=== PATIENT | female | born 1960 | race Caucasian/White ===

== ENCOUNTER 2016-12-04 12:15 | Outpatient (CLI) | payer MEDICAID | END 2016-12-04 12:16 | disposition home or self-care (01) | DX: M79.671 Pain in right foot (principal) ==

== ENCOUNTER 2017-05-17 10:54 | Outpatient (CLI) | payer MEDICAID ==
[2017-05-17 11:15] LABS: BASOPHILS % (AUTO) 0.3 %; EOSINOPHILS # (AUTO) 0.1 10^3/uL (0.0-0.7); HCT - HEMATOCRIT 36.7 % (37.0-47.0); HGB - HEMOGLOBIN 12.2 g/dL (12.0-16.0); LYMPHOCYTES # (AUTO) 1.6 10^3/uL (1.5-3.5); MEAN CORPUSCULAR HEMOGLOBIN 29.4 pg (27.0-31.0); MEAN CORPUSCULAR HGB CONC 33.3 g/dL (32.0-36.0); MEAN CORPUSCULAR VOLUME 88.4 fL (81.0-99.0); MEAN PLATELET VOLUME 8.2 fL (7.9-10.8); MONOCYTES # (AUTO) 0.2 10^3/uL (0.0-1.0); MONOCYTES % (AUTO) 3.4 %; NEUTROPHILS # (AUTO) 3.1 10^3/uL (1.5-6.6); NEUTROPHILS % (AUTO) 63.3 %; RED BLOOD COUNT 4.16 10^6/uL (4.20-5.40); RED CELL DISTRIBUTION WIDTH 12.9 % (12.0-15.0); UNCORRECTED WHITE BLOOD COUNT 4.9 x10^3/uL; WHITE BLOOD COUNT 4.9 x10^3/uL (4.8-10.8)
[2017-05-17 11:29] LABS: HEMOGLOBIN A1C 0.51 g/dL
[2017-05-17 11:30] LABS: ALBUMIN/GLOBULIN RATIO 0.9 (1.0-2.2); BILIRUBIN,TOTAL 0.3 mg/dL (0.2-1.0); BUN - BLOOD UREA NITROGEN 10 mg/dL (6-20); CALCIUM 8.5 mg/dL (8.5-10.3); CARBON DIOXIDE - CO2 29 mmol/L (21-32); CHLORIDE 102 mmol/L (101-111); CHOL/HDL RATIO 3.9 (<4.4); CHOLESTEROL 178 mg/dL; CREATININE 0.7 mg/dL (0.4-1.0); GFR - MDRD 86 (>89); GLUCOSE 105 mg/dL (70-100); HDL CHOLESTEROL 46 mg/dL; POTASSIUM 3.7 mmol/L (3.5-5.0); SODIUM 136 mmol/L (135-145); TOTAL PROTEIN 7.5 g/dL (6.7-8.2); TRIGLYCERIDES 199 mg/dL; VLDL CHOLESTEROL 40 mg/dL
== END 2017-05-17 10:55 | disposition home or self-care (01) ==
LOC: LAB 10:54
PROVIDERS: ATTEND Family Medicine
DX: R73.01 Impaired fasting glucose (principal)
CPT/HCPCS: 36415; 80053; 80061; 83036; 84443; 85025

== ENCOUNTER 2017-06-16 17:27 | Emergency (ER) | payer MEDICAID ==
[2017-06-16 17:35] VITALS: BP 131/76
[2017-06-16] MEDS ORDERED: LIDOCAINE VISCOUS 2% 15 ML UDC MM STA (17:57)
[2017-06-16] MEDS ORDERED: MAG HYDROX/AL HYDROX/SIMETH 30 ML UDC PO STA (17:57)
--- NOTE | 2017-06-16 17:59 | ED Physician Documentation ---
PD HPI HEENT - Stated complaint Stated Complaint: SORE THROAT/TEAGUE - Chief complaint Chief Complaint: Heent - History obtained from History obtained from: Patient - History of Present Illness Timing - onset: Other (6 days of sores on her tongue, especially the right side with a painful swelling under the right mandible and a sore throat with some fatigue and myalgias but no measured fevers. There is no associated cough, rhinorrhea.) Review of Systems Constitutional: reports: Myalgias, Fatigue. denies: Fever, Chills Ears: reports: Ear pain (Pain radiates to the right ear) Nose: denies: Rhinorrhea / runny nose, Congestion Throat: reports: Sore throat PD PAST MEDICAL HISTORY - Past Medical History Cardiovascular: High cholesterol, Coronary artery disease Respiratory: None Neuro: None Endocrine/Autoimmune: None Psych: None Musculoskeletal: None - Past Surgical History General: Cholecystectomy, Appendectomy - Present Medications Home Medications: Ambulatory Orders Medication Instructions Recorded Confirmed Aspirin [Aspirin EC] 81 mg PO DAILY 06/16/17 06/16/17 Atorvastatin [Lipitor] 10 mg PO DAILY 06/16/17 06/16/17 Clopidogrel [Plavix] 75 mg PO DAILY 06/16/17 06/16/17 Estradiol 0.5 mg PO DAILY 06/16/17 06/16/17 Magic Mouthwash 10 ml PO Q2H PRN #120 ml 06/16/17 - Allergies Allergies/Adverse Reactions: Allergies Allergy/AdvReac Type Severity Reaction Status Date / Time acetaminophen [From Percocet] Allergy Unknown Verified 06/16/17 17:42 oxycodone HCl * Allergy Unknown Verified 06/16/17 17:42 [From Percocet] - Social History Does the pt smoke?: No Smoking Status: Never smoker Does the pt drink ETOH?: No Does the pt have substance abuse?: No PD ED PE NORMAL - Vitals Vital signs reviewed: Yes - General General: Alert and oriented X 3, No acute distress - HEENT HEENT: Ears normal (TMs normal), Other (She has some very small ulcers on the lateral side on the right of the tongue on the right and also the buccal mucosa with a single swollen tender submandibular lymph node but no other cervical adenopathy.) - Neck Neck: Supple, no meningeal sign, No bony TTP - Respiratory Respiratory: No respiratory distress, Clear bilaterally - Abdomen Abdomen: Non tender - Derm Derm: No rash - Neuro Neuro: Alert and oriented X 3, Normal speech - Psych Psych: Normal mood, Normal affect Results - Vitals Vitals: Vital Signs - 24 hr 06/16/17 17:33 Temperature 36.2 C L Heart Rate 81 Respiratory 16 Rate Blood Pressure 131/76 H O2 Saturation 98 PD MEDICAL DECISION MAKING - ED course ED course: She has signs and symptoms consistent with a viral stomatitis, conservative care and Magic mouthwash were advised. Departure - Departure Disposition: 01 Home, Self Care Clinical Impression: Viral stomatitis Condition: Good Record reviewed to determine appropriate education?: Yes Instructions: ED Stomatitis Ch Prescriptions: Magic Mouthwash 10 ml PO Q2H PRN #120 ml PRN Reason: mouth pain Comments: Call your doctor to arrange a follow-up appointment, make the next available appointment. In the interim, return anytime if worse or if new symptoms develop. Your blood pressure was elevated today on check into the emergency department. This does not mean that you have hypertension, it is a common phenomenon to come to the emergency department and have elevated blood pressure. I recommend that she see her primary care physician within the week to have it rechecked when you are feeling better. Forms: Activity restrictions
[2017-06-16] MEDS ORDERED: MAG HYDROX/AL HYDROX/SIMETH 30 ML UDC ONE ×2 (18:10→18:15)
[2017-06-16] MEDS ORDERED: LIDOCAINE VISCOUS 2% 15 ML UDC MM ONE ×2 (18:10→18:15)
== END 2017-06-16 18:12 | disposition home or self-care (01) ==
LOC: ED 17:27
DX: K12.1 Other forms of stomatitis (principal); B34.9 Viral infection, unspecified; I25.10 Atherosclerotic heart disease of native coronary artery without angina pectoris; R03.0 Elevated blood-pressure reading, without diagnosis of hypertension; Z79.82 Long term (current) use of aspirin
CPT/HCPCS: 99283; A9270

== ENCOUNTER 2018-02-13 10:27 | Outpatient (CLI) | payer MEDICAID ==
--- NOTE | 2018-02-14 12:15 | Mammography Report ---
REVISED: REPORT ORIGINALLY SIGNED ON 02/14/2018@1228; ORDERS LINKED ON 2017 jll BILATERAL MAMMOGRAPHY, AND RIGHT BREAST ULTRASOUND: 02/13/2018 HISTORY: Palpable right breast lump 2 to 3-o'clock position adjacent to the nipple. TECHNIQUE: Bilateral digital CC and MLO projection with additional right true lateral and spot compression views. COMPARISON: 04/11/2016, 12/31/2013 and 08/05/2012 mammography. FINDINGS: There are scattered fibroglandular densities. Nodular densities in both breasts are unchanged compared to previous. No architectural distortion, skin thickening or suspicious microcalcifications are identified. In the area of palpable abnormality in the right subareolar region 2 to 3-o'clock position, minor stable asymmetric increased density is seen which partially dissipates on additional views. RIGHT BREAST ULTRASOUND TECHNIQUE: Real-time scanning by the health sciences department chair with me present and saved static images reviewed. COMPARISON: 04/30/2016. FINDINGS: In the 3-o'clock position periareolar region, there is an ovoid, hypoechoic, well circumscribed avascular structure measuring 7.6 x 4 x 3.9 mm. This is similar in configuration to the 04/30/2016 ultrasound and measures approximately 1 mm more in size in each dimension, which may be technical. No other cystic or solid mass is seen. A few subareolar dilated ducts are appreciated. IMPRESSION: PROBABLY BENIGN FINDING RIGHT BREAST. SUGGEST FOLLOWUP RIGHT BREAST ULTRASOUND IN 6 MONTHS. BI-RADS CATEGORY 3 - PROBABLE BENIGN FINDING. STANDARD QUALIFYING STATEMENTS 1. This examination was reviewed with the aid of Computer-Aided Detection (CAD) . 2. A negative or benign imaging report should not delay biopsy if clinically suspicious findings are present. Consider surgical consultation if warranted. More than 5 % of cancers are not identified by imaging. 3. Dense breasts may obscure an underlying neoplasm. TD: 02/13/2018 12:41 AD
== END 2018-02-13 10:28 | disposition home or self-care (01) ==
LOC: DI 10:27
PROVIDERS: ATTEND Nurse Practitioner Gerontology
DX: N63.11 Unspecified lump in the right breast, upper outer quadrant (principal)
CPT/HCPCS: 76642; 77066

== ENCOUNTER 2018-03-25 09:46 | Outpatient (CLI) | payer MEDICAID ==
[2018-03-25 10:34] LABS: ALBUMIN 3.6 g/dL (3.2-5.5); ALKALINE PHOSPHATASE 49 IU/L (42-121); ALT ALANINE AMINOTRANSFERASE 21 IU/L (10-60); AST ASPARTATE AMINOTRANSFERASE 26 IU/L (10-42); BILIRUBIN,TOTAL 0.5 mg/dL (0.2-1.0); BUN - BLOOD UREA NITROGEN 11 mg/dL (6-20); CALCIUM 8.3 mg/dL (8.5-10.3); CARBON DIOXIDE - CO2 26 mmol/L (21-32); CHLORIDE 103 mmol/L (101-111); CHOL/HDL RATIO 4.5 (<4.4); CHOLESTEROL 181 mg/dL; CREATININE 0.6 mg/dL (0.4-1.0); GFR - MDRD 102 (>89); GLUCOSE 96 mg/dL (70-100); HDL CHOLESTEROL 40 mg/dL; LDL CHOLESTEROL,CALCULATED 81 mg/dL; SODIUM 136 mmol/L (135-145); TOTAL PROTEIN 7.3 g/dL (6.7-8.2); VLDL CHOLESTEROL 60 mg/dL
== END 2018-03-25 09:47 | disposition home or self-care (01) ==
LOC: LAB 09:46
PROVIDERS: ATTEND Internal Medicine
DX: R07.9 Chest pain, unspecified (principal)
CPT/HCPCS: 36415; 80053; 80061; 83721

== ENCOUNTER 2018-05-05 04:18 | Emergency (ER) | payer MEDICAID ==
[2018-05-05 04:56] LABS: GLUCOSE, URINE (UA) 100 mg/dL (NEGATIVE)
[2018-05-05 04:57] LABS: CLARITY,URINE CLOUDY (CLEAR)
[2018-05-05 05:00] LABS: BILIRUBIN,URINE NEGATIVE (NEGATIVE); ICTOTEST,URINE NEGATIVE; KETONES,URINE (UA) TRACE mg/dL (NEGATIVE); OCCULT BLOOD,URINE LARGE (NEGATIVE)
[2018-05-05 05:09] LABS: BACTERIA,URINE Few /HPF (None Seen); MUCUS,URINE Few Strands; RBC,URINE TNTC /HPF (0-5); SQUAMOUS EPITHELIAL CELL,UR NONE SEEN (<= Few)
--- NOTE | 2018-05-05 05:10 | ED Physician Documentation ---
PD HPI FEMALE - Stated complaint Stated Complaint: FEMALE - Chief complaint Chief Complaint: Abd Pain - History obtained from History obtained from: Patient - History of Present Illness Timing - onset: How many days ago (1-2) Timing - details: Gradual onset Associated symptoms: Back pain, Dysuria, Urinary frequency. No: Fever - Additional information Additional information: c/o 1-2 days of burning dysuria, frequent urination with little output, waxing and waning back pain that is across mid-level of back. symptoms are similar to previous UTIs Review of Systems Constitutional: reports: Chills, Sweats. denies: Fever GI: denies: Abdominal Pain, Nausea, Vomiting, Constipation, Diarrhea : reports: Dysuria, Frequency, Hematuria Skin: denies: Rash Musculoskeletal: reports: Back pain PD PAST MEDICAL HISTORY - Past Medical History Past Medical History: Yes Cardiovascular: High cholesterol, Coronary artery disease Respiratory: None Endocrine/Autoimmune: None Psych: None Musculoskeletal: None - Past Surgical History General: Cholecystectomy, Appendectomy - Present Medications Home Medications: Ambulatory Orders Medication Instructions Recorded Confirmed Aspirin [Aspirin EC] 81 mg PO DAILY 06/16/17 06/16/17 Atorvastatin [Lipitor] 10 mg PO DAILY 06/16/17 06/16/17 Clopidogrel [Plavix] 75 mg PO DAILY 06/16/17 06/16/17 Estradiol 0.5 mg PO DAILY 06/16/17 06/16/17 Magic Mouthwash 10 ml PO Q2H PRN #120 ml 06/16/17 Ciprofloxacin HCl [Cipro] 500 mg PO BID #13 tablet 05/05/18 Hydrocodone/Acetaminophen 1 - 2 each PO Q6HR PRN #14 tablet 05/05/18 [Hydrocodon-Acetaminophen 5-325] - Allergies Allergies/Adverse Reactions: Allergies Allergy/AdvReac Type Severity Reaction Status Date / Time acetaminophen [From Percocet] Allergy Unknown Verified 05/05/18 04:28 oxycodone HCl * Allergy Unknown Verified 05/05/18 04:28 [From Percocet] - Social History Does the pt smoke?: No Smoking Status: Never smoker Does the pt drink ETOH?: No Does the pt have substance abuse?: No PD ED PE NORMAL - Vitals Vital signs reviewed: Yes - General General: Alert and oriented X 3, No acute distress, Well developed/nourished - HEENT HEENT: Moist mucous membranes - Abdomen Abdomen: Soft, Non tender - Back Back: No CVA TTP, No spinal TTP - Derm Derm: Normal color, Warm and dry, No rash Results - Vitals Vitals: Vital Signs - 24 hr 05/05/18 05/05/18 04:30 06:01 Temperature 36.8 C Heart Rate 89 88 Respiratory 18 18 Rate Blood Pressure 127/73 126/72 O2 Saturation 100 100 Oxygen O2 Source Room air - Labs Labs: Laboratory Tests 05/05/18 04:43 Urine Color RED/BLOODY Urine Clarity CLOUDY Urine pH 5.0 Ur Specific [place] >=1.030 H Urine Protein Urine Glucose (UA) 100 H Urine Ketones TRACE Urine Occult Blood LARGE Urine Nitrite Urine Bilirubin NEGATIVE Urine Urobilinogen Ur Leukocyte Esterase Urine RBC TNTC H Urine WBC 11-25 H Ur Squamous Epith Cells NONE SEEN Urine Bacteria Few Urine Mucus Few Strands Ur Microscopic Review INDICATED Urine Culture Comments INDICATED PD MEDICAL DECISION MAKING - ED course Complexity details: reviewed results, re-evaluated patient, considered differential, d/w patient - Sepsis Event Vital Signs: Vital Signs - 24 hr 05/05/18 05/05/18 04:30 06:01 Temperature 36.8 C Heart Rate 89 88 Respiratory 18 18 Rate Blood Pressure 127/73 126/72 O2 Saturation 100 100 Oxygen O2 Source Room air Departure - Departure Disposition: 01 Home, Self Care Clinical Impression: Pyelonephritis Condition: Good Instructions: ED Kidney Infec Female Follow-Up: Brenda Shearer ARNP [Primary Care Provider] - (3-4 days if symptoms persist) Prescriptions: Hydrocodone/Acetaminophen [Hydrocodon-Acetaminophen 5-325] 1 - 2 each PO Q6HR PRN #14 tablet PRN Reason: Pain Ciprofloxacin HCl [Cipro] 500 mg PO BID #13 tablet Comments: You should also use pyridium (Azo) as directed by the label (this is over-the- counter and thus no prescription is necessary). Forms: Activity restrictions Discharge Date/Time: 05/05/18 06:01
[2018-05-05] MEDS ORDERED: CIPROFLOXACIN 250 MG TABLET PO STA (05:33)
[2018-05-05] MEDS ORDERED: cefTRIAXone 1 GM VIAL IM STA (05:33)
[2018-05-05] MEDS ORDERED: LIDOCAINE 1% 2 ML VIAL SUBQ ONE (05:33)
[2018-05-05] MEDS ORDERED: PHENAZOPYRIDINE 100 MG TABLET PO STA (05:33)
[2018-05-05] MEDS ORDERED: HYDROcod/ACET 5/325 Prepack 4 PO STA (05:34)
[2018-05-05 06:02] VITALS: BP 126/72
== END 2018-05-05 06:01 | disposition home or self-care (01) ==
LOC: ED 04:18
DX: N12 Tubulo-interstitial nephritis, not specified as acute or chronic (principal); I25.10 Atherosclerotic heart disease of native coronary artery without angina pectoris; E78.00 Pure hypercholesterolemia, unspecified; Z79.82 Long term (current) use of aspirin
CPT/HCPCS: 81001; 87086; 96372; 99283; A9270; 81003

== ENCOUNTER 2018-06-05 10:50 | Outpatient (CLI) | payer MEDICAID ==
[2018-06-05 19:14] LABS: BILIRUBIN,URINE NEGATIVE (NEGATIVE); GLUCOSE, URINE (UA) NEGATIVE (NEGATIVE); KETONES,URINE (UA) NEGATIVE (NEGATIVE); LEUKOCYTE ESTERASE, URINE NEGATIVE (NEGATIVE); NITRITE,URINE NEGATIVE (NEGATIVE); OCCULT BLOOD,URINE NEGATIVE (NEGATIVE); PROTEIN,URINE NEGATIVE (NEGATIVE); UROBILINOGEN,URINE 0.2 (NORMAL) E.U./dL (NORMAL)
[2018-06-05 19:23] LABS: CLARITY,URINE CLOUDY (CLEAR)
[2018-06-05 19:40] LABS: BACTERIA,URINE None Seen /HPF (None Seen); RBC,URINE None Seen /HPF (0-5); SQUAMOUS EPITHELIAL CELL,UR NONE SEEN (<= Few)
[2018-06-05 19:41] LABS: AMORPHOUS SEDIMENT,UR Marked /LPF
== END 2018-06-05 10:51 | disposition home or self-care (01) ==
LOC: LAB.R 10:50
PROVIDERS: ATTEND Nurse Practitioner
DX: N39.0 Urinary tract infection, site not specified (principal)
CPT/HCPCS: 81001; 87086

== ENCOUNTER 2018-08-07 14:36 | Outpatient (CLI) | payer MEDICAID ==
[2018-08-07 18:42] LABS: BILIRUBIN,URINE NEGATIVE (NEGATIVE); GLUCOSE, URINE (UA) NEGATIVE (NEGATIVE); KETONES,URINE (UA) NEGATIVE (NEGATIVE); LEUKOCYTE ESTERASE, URINE NEGATIVE (NEGATIVE); NITRITE,URINE NEGATIVE (NEGATIVE); OCCULT BLOOD,URINE NEGATIVE (NEGATIVE); PROTEIN,URINE NEGATIVE (NEGATIVE); UROBILINOGEN,URINE 0.2 (NORMAL) E.U./dL (NORMAL)
[2018-08-07 18:47] LABS: CLARITY,URINE HAZY (CLEAR)
[2018-08-07 19:00] LABS: AMORPHOUS SEDIMENT,UR Few /LPF; BACTERIA,URINE None Seen /HPF (None Seen); CRYSTALS,URINE 3-5 Tyrosine /LPF; RBC,URINE 0-5 /HPF (0-5); SQUAMOUS EPITHELIAL CELL,UR RARE Squamous (<= Few)
== END 2018-08-07 14:37 | disposition home or self-care (01) ==
LOC: LAB.N 14:36
PROVIDERS: ATTEND Family Medicine
DX: R30.0 Dysuria (principal)
CPT/HCPCS: 81001; 87086

== ENCOUNTER 2018-08-25 08:28 | Outpatient (CLI) | payer MEDICAID ==
--- NOTE | 2018-08-25 11:46 | Ultrasound Report ---
Reason: 6 MO F/U BREAST LUMP Procedure Date: 08/25/2018 Accession Number: [id number] / [id number] Procedure: US - Breast Unilateral Limited CPT Code: FULL RESULT: EXAM: Diagnostic Dig RT, Breast Unilateral Limited DATE: 08/25/2018 10:41 AM CLINICAL HISTORY: Six-month follow-up right breast ultrasound, increasing palpable abnormality right breast. RIGHT BREAST ULTRASOUND: TECHNIQUE: Real-time scanning of the right breast upper inner quadrant with me present in saved static images reviewed. COMPARISON: 02/13/2018, 04/30/2016 FINDINGS: In the right breast 3:00 position periareolar region there is a stable ovoid hypoechoic well-circumscribed avascular structure measuring approximately 7 x 4 x 4 mm, unchanged since 02/14/2016. In the 2:00 position periareolar region there is a 5 x 5 x 7 mm vascular slightly irregular appearing lesion corresponding to the palpable finding not definitely seen on the prior ultrasound. RIGHT BREAST MAMMOGRAM: Technique: Unilateral right breast mammogram with tomography and additional spot compression views. Findings: There are scattered fibroglandular densities. Corresponding to the palpable abnormality in the 2:00 periareolar region is a round 5 mm in diameter dense well-circumscribed lesion best appreciated on the MLO tomogram image 75. IMPRESSION: Suspicious abnormality. RECOMMENDATION: Ultrasound-guided right breast core biopsy. BIRADS CATEGORY 4: Suspicious STANDARD QUALIFYING STATEMENTS: 1. This examination was reviewed with the aid of Computer-Aided Detection (CAD). 2. A negative or benign imaging report should not delay biopsy if clinically suspicious findings are present. Consider surgical consultation if warrented. More than 5% of cancers are not identified by imaging. 3. Dense breasts may obscure an underlying neoplasm. Results called to Poly del [facility]illo [phone] 11:40 AM 08/25/2018.
== END 2018-08-25 08:29 | disposition home or self-care (01) ==
LOC: DI 08:28
PROVIDERS: ATTEND Nurse Practitioner Gerontology
DX: N63.12 Unspecified lump in the right breast, upper inner quadrant (principal)
CPT/HCPCS: 76642

== ENCOUNTER 2018-09-05 09:29 | Outpatient (CLI) | payer MEDICAID ==
--- NOTE | 2018-09-05 14:17 | Mammography Report ---
Reason: ABN MAMMO - RT BREAST NODULE Procedure Date: 09/05/2018 Accession Number: [id number] / [id number] Procedure: MIRZA - Diagnostic Dig RT CPT Code: FULL RESULT: PROCEDURE: Ultrasound-guided needle biopsy right breast mass with postprocedure mammogram. CLINICAL DATA: Targeted mass measuring 7 x 4 x 4 mm with minimally irregular slightly lobulated margins in the 2 o'clock axis of the periareolar right breast. Informed consent was obtained. Using standard aseptic technique, both 1% buffered lidocaine and Sensorcaine were injected into the right breast for local anesthesia. A small marcus was made in the skin with a #11 blade. A 14-gauge Achieve needle was used to obtain 5 specimens. A specialized biopsy marker clip was placed into the biopsy cavity under ultrasound guidance. The patient was taken to separate mammography machine and two-view digital mammography was performed to verify the clip placement and any complications. The mammography showed appropriate positioning of the biopsy clip. No unanticipated findings are noted. The wound was dressed and ice applied. The patient was observed for approximately 15 minutes, then was discharged from diagnostic imaging Department in good condition following instructions on wound care and obtaining biopsy results. The patient is scheduled to receive the biopsy results from the referring physician. The tissue was sent for histologic analysis. IMPRESSION: Ultrasound-guided biopsy of the right breast. AN ADDENDUM WILL REMAIN TO THIS REPORT WHEN PATHOLOGY IS REVIEWED TO ESTABLISH CONCORDANCE.
[2018-09-05] MEDS ORDERED: BUPIVACAINE 0.5%-EPI 1:200000 PF 10 ML VIAL SUBQ ONE (14:29)
[2018-09-05] MEDS ORDERED: BUFFERED LIDOCAINE 10 ML SYRINGE IU ONE (14:29)
== END 2018-09-05 09:30 | disposition home or self-care (01) ==
LOC: DI 09:29
PROVIDERS: ATTEND Nurse Practitioner Gerontology
DX: D24.1 Benign neoplasm of right breast (principal)
CPT/HCPCS: 19083